=== PATIENT | female | born 1995 | race Caucasian/White ===

== ENCOUNTER 2016-09-22 19:40 | Emergency (ER) | payer OTHER, BC ==
[~2016-09-22] VITALS: Ht 162.6 cm; Wt 81.8 kg
[~2016-09-22 19:40] MED LIST: NO HOME MEDICATIONS
[2016-09-22 19:55] VITALS: BP 139/96; TEMP 98.4
[2016-09-22] MEDS ORDERED: MICROGESTIN FE1 TA1 PO (19:59)
[2016-09-22] MEDS ORDERED: SYNTHROID0.05 MG/TA PO (19:59)
[2016-09-22 21:35] VITALS: PULSE 84
== END 2016-09-22 21:35 | disposition home or self-care (01) ==
LOC: COL.ER 19:40
DX: S80.212A Abrasion, left knee, initial encounter (principal); S80.211A Abrasion, right knee, initial encounter; S80.02XA Contusion of left knee, initial encounter; S80.01XA Contusion of right knee, initial encounter; S63.601A Unspecified sprain of right thumb, initial encounter; V43.62XA Car passenger injured in collision with other type car in traffic accident, initial encounter; Y92.410 Unspecified street and highway as the place of occurrence of the external cause

== ENCOUNTER 2017-07-30 18:51 | Emergency (ER) | payer BC ==
[~2017-07-30] VITALS: Ht 162.6 cm; Wt 90.9 kg
[~2017-07-30 18:51] MED LIST changes: +MICROGESTIN FE1 TA1 PO; +SYNTHROID0.05 MG/TA PO
[2017-07-30 18:54] VITALS: BP 134/87; TEMP 98.4
[2017-07-30] MEDS ORDERED: TESSALON P100 MG/CAP PO (20:14)
[2017-07-30 21:12] VITALS: PULSE 98
== END 2017-07-30 21:11 | disposition home or self-care (01) ==
LOC: COL.ER 18:51
DX: J06.9 Acute upper respiratory infection, unspecified (principal); E03.9 Hypothyroidism, unspecified

== ENCOUNTER 2018-01-13 17:22 | Emergency (ER) | payer BC ==
[~2018-01-13] VITALS: Ht 162.6 cm; Wt 81.8 kg
[~2018-01-13 17:22] MED LIST changes: +TESSALON P100 MG/CAP PO
[2018-01-13 17:28] VITALS: BP 137/89; PULSE 91; TEMP 98.8
== END 2018-01-13 19:35 | disposition home or self-care (01) ==
LOC: COL.ER 17:22
DX: M79.672 Pain in left foot (principal); M79.671 Pain in right foot; E03.9 Hypothyroidism, unspecified; Z90.89 Acquired absence of other organs

== ENCOUNTER 2023-12-29 20:35 | Emergency (ER) | payer OTHER ==
[~2023-12-29] VITALS: Ht 162.6 cm; Wt 150.0 kg
[2023-12-29 20:41] VITALS: TEMP 98.8
[2023-12-29] MEDS ORDERED: ZITHROMAX Z PA250 MG PO (21:05)
[2023-12-29 21:13] VITALS: BP 155/111; PULSE 99
[2023-12-29] MEDS ORDERED: Azithromycin 250 MG TAB PO ONE (21:15)
== END 2023-12-29 21:13 | disposition home or self-care (01) ==
LOC: COL.ER 20:35
DX: L03.115 Cellulitis of right lower limb (principal); E03.9 Hypothyroidism, unspecified; Z79.899 Other long term (current) drug therapy; Z88.0 Allergy status to penicillin; Z88.1 Allergy status to other antibiotic agents; Z88.2 Allergy status to sulfonamides